=== PATIENT | female | born 1960 | race Caucasian/White ===

== ENCOUNTER 2024-01-19 09:10 | Inpatient (IN) | payer OTHER ==
[~2024-01-19] VITALS: Ht 167.6 cm; Wt 94.5 kg
[2024-01-19] MEDS: ASPirin 81 mg TAB PO ONE (09:30)
[2024-01-19 09:36] LABS: Basophils # (auto) 0.1 10 ^3/uL (0-0.2); Basophils % (auto) 0.9 % (0.0-2.0); Eosinophils # (auto) 0.2 10 ^3/uL (0-0.8); Eosinophils % (auto) 1.9 % (0.0-7.0); Hematocrit 47.3 % (36.0-46.0); Hemoglobin 16.2 g/dL (12.2-16.2); Lymphocytes # (auto) 2.7 10 ^3/uL (0.4-5.4); Lymphocytes % (auto) 27.2 % (10.0-50.0); Mean Corpuscular Hemoglobin 32.5 pg (28.0-32.0); Mean Corpuscular Hgb Conc. 34.2 g/dL (32.0-36.0); Mean Corpuscular Volume 95.2 fL (80.0-100.0); Monocytes # (auto) 0.5 10 ^3/uL (0-1.3); Monocytes % (auto) 4.6 % (0.0-12.0); Neutrophils # (auto) 6.6 10 ^3/uL (1.6-8.6); Neutrophils % (auto) 65.4 % (37.0-80.0); Nucleated Red Blood Cells % 0.2 %; Red Blood Cells 4.97 10^6/uL (4.0-5.20); Red Cell Distribution Width 13.1 % (11.8-14.3)
[2024-01-19 09:42] LABS: Albumin 4.4 g/dL (3.2-4.8); Alkaline Phosphatase 47 U/L (46-116); Anion Gap 2 (5-15); Aspartate Aminotransferase 13 U/L (13-40); Blood Urea Nitrogen 12 mg/dL (9-23); Calcium 10.1 mg/dL (8.5-10.1); Carbon Dioxide 28 mmol/L (20-30); Chloride 111 mmol/L (98-107); Glucose 113 mg/dL (74-106); Magnesium 1.9 mg/dL (1.6-2.6); Sodium 141 mmol/L (136-145)
[2024-01-19 09:43] LABS: Bilirubin, Total 0.5 mg/dL (0.2-1.0); Total Protein 7.3 g/dL (5.7-8.2)
[2024-01-19 09:44] LABS: INR 0.97 (0.9-1.15); Partial Thromboplastin Time 26.7 SEC (24.5-34.5); Prothrombin Time 10.3 sec (9.3-11.8)
[2024-01-19 09:51] LABS: Alanine Aminotransferase < 9 U/L (7-40)
[2024-01-19 10:00] VITALS: PULSE 93; RESP 22; O2SAT 94
[2024-01-19 10:00] LABS: Urine Bacteria None Seen /hpf (None Seen)
[2024-01-19 10:09] LABS: Urine Blood 1+ /uL (Negative); Urine Clarity Clear (Clear); Urine Color Light-Yellow (Yellow); Urine Protein, UAD 2+ (Negative); Urine Specific Gravity 1.015 (1.001-1.035); Urine Urobilinogen Normal (Negative); Urine WBC 2 /hpf (0 - 5)
[2024-01-19] MEDS: dilTIAZem 25 MG/5 ML VIAL IV ONE (11:19)
[2024-01-19] MEDS ORDERED: LISI20TA56 PO (12:31)
[2024-01-19] MEDS ORDERED: CITA-77 PO (12:31)
[2024-01-19] MEDS ORDERED: GABA-1250 PO (12:31)
[2024-01-19] MEDS ORDERED: ATOR20TA50 PO (12:31)
[2024-01-19] MEDS ORDERED: LEVO125T7 PO (12:31)
[2024-01-19 12:56] LABS: Amphetamine Screen, Urine Neg (NEGATIVE)
[2024-01-19 12:57] LABS: Barbiturate Scree,Urine Neg (NEGATIVE); Benzodiazephine Screen, Urine Neg (NEGATIVE); Cannabinoid Screen, Urine Neg (NEGATIVE); Cocaine Screen, Urine Neg (NEGATIVE); Opiate Scree,Urine Pos (NEGATIVE); Phencyclidine Screen, Urine Neg (NEGATIVE)
[2024-01-19] MEDS ORDERED: MORPHINE SULFATE INJ 2 MG/ml SYRG IV PRN (13:15)
[2024-01-19] MEDS ORDERED: ACETAMINOPHEN 325 MG TAB PO PRN ×2 (13:15)
[2024-01-19] MEDS ORDERED: ONDANSETRON HCL 4 MG/2 ML VIAL IV PRN (13:15)
[2024-01-19] MEDS ORDERED: NITROGLYCERIN 0.4 MG SL TAB SL PRN (13:15)
[2024-01-19] MEDS ORDERED: DEXTROSE (50%) 50ML SYRG IV PRN (13:15)
[2024-01-19] MEDS ORDERED: hydrALAZINE HCL 20 MG/ML VL IV PRN (13:30)
[2024-01-19] MEDS: MAGNESIUM SULFATE 1GM/100ML 100 ML IV SCH (13:53)
[2024-01-19] MEDS: ENOXAPARIN SOD 100 MG/1 ML SYRINGE SC ONE (13:53)
[2024-01-19] MEDS: GABAPENTIN 300 MG CAP PO SCH (13:54)
[2024-01-19 14:03] LABS: Triglycerides 122 mg/dL (< 150)
[2024-01-19 14:04] LABS: LDL Cholesterol 79 mg/dL (< 100)
[2024-01-19 14:05] LABS: HDL Cholesterol 50 mg/dL (40-59)
[2024-01-19 14:06] LABS: Cholesterol 151 mg/dL (< 200)
[2024-01-19] MEDS: NICOTINE 21MG/24 HR TOPICAL PATCH TD ONE (15:04)
[2024-01-19] MEDS: ACCU-CHEK COMFORT CURVE STRIP VI SCH (17:43)
[2024-01-19] MEDS: InsuLIN REG 1unit/0.01ml Soln (100units/ml) SC SCH (17:43)
[2024-01-19] MEDS: ATORVASTATIN 20 MG TAB PO SCH (22:04)
[2024-01-19] MEDS: ENOXAPARIN SOD 100 MG/1 ML SYRINGE SC SCH (22:05)
[2024-01-19] MEDS: MAGNESIUM OXIDE 400 MG TAB PO SCH (22:20)
[2024-01-19] MEDS: METOPROLOL TARTRATE 25 MG TAB PO SCH (22:21)
[2024-01-19] MEDS: LISINOPRIL 20 MG TAB PO SCH (22:21)
[2024-01-19] MEDS: MORPHINE SULFATE INJ 2 MG/ml SYRG IV PRN (23:13)
[2024-01-20] VITALS (9 sets, daily range): BP systolic 114–150; BP diastolic 57–87; PULSE 61–144; RESP 18–20; TEMP 97.6–98.4; O2SAT 92–97
[2024-01-20] MEDS ORDERED: EMPA1TAB PO (04:49)
[2024-01-20 06:05] LABS: Basophils # (auto) 0.1 10 ^3/uL (0-0.2); Basophils % (auto) 0.8 % (0.0-2.0); Eosinophils # (auto) 0.2 10 ^3/uL (0-0.8); Eosinophils % (auto) 2.1 % (0.0-7.0); Hematocrit 42.4 % (36.0-46.0); Hemoglobin 14.4 g/dL (12.2-16.2); Lymphocytes # (auto) 2.7 10 ^3/uL (0.4-5.4); Lymphocytes % (auto) 35.2 % (10.0-50.0); Mean Corpuscular Hemoglobin 32.2 pg (28.0-32.0); Mean Corpuscular Volume 94.7 fL (80.0-100.0); Monocytes # (auto) 0.4 10 ^3/uL (0-1.3); Monocytes % (auto) 5.3 % (0.0-12.0); Neutrophils # (auto) 4.4 10 ^3/uL (1.6-8.6); Neutrophils % (auto) 56.6 % (37.0-80.0); Nucleated Red Blood Cells % 0.1 %; Red Blood Cells 4.48 10^6/uL (4.0-5.20); Red Cell Distribution Width 12.9 % (11.8-14.3); White Blood Cell 7.7 10^3/uL (4.4-10.8)
[2024-01-20] MEDS: LEVOTHYROXINE SODIUM 25 MCG TAB PO SCH (06:08)
[2024-01-20] MEDS: LEVOTHYROXINE SODIUM 100 MCG TAB PO SCH (06:08)
[2024-01-20 06:22] LABS: Albumin 3.7 g/dL (3.2-4.8); Alkaline Phosphatase 36 U/L (46-116); Anion Gap 4 (5-15); Aspartate Aminotransferase 13 U/L (13-40); BUN/Creatinine Ratio 14.9 (10.0-20.0); Blood Urea Nitrogen 14 mg/dL (9-23); Calcium 9.5 mg/dL (8.7-10.4); Carbon Dioxide 28 mmol/L (20-30); Chloride 109 mmol/L (98-107); Glucose 94 mg/dL (74-106); Potassium 3.7 mmol/L (3.5-5.1); Sodium 141 mmol/L (136-145)
[2024-01-20 06:23] LABS: Bilirubin, Total 0.6 mg/dL (0.2-1.0); Total Protein 6.4 g/dL (5.7-8.2)
[2024-01-20 06:25] LABS: Alanine Aminotransferase < 9 U/L (7-40)
[2024-01-20] MEDS: HYDROcodone-ACET 5/325MG TAB PO PRN (06:45)
[2024-01-20] MEDS ORDERED: HYDR-4798 PO (06:49)
[2024-01-20] MEDS: NICOTINE 21MG/24 HR TOPICAL PATCH TD SCH (09:20)
[2024-01-20] MEDS: CITALOPRAM HYDROBR 20 MG TAB PO SCH (09:22)
[2024-01-20] MEDS ORDERED: GABA-1250 PO ×2 (09:26→09:27)
[2024-01-20] MEDS ORDERED: FENO54TA4 PO (09:27)
[2024-01-20] MEDS ORDERED: EMPA1TAB3 PO (09:28)
[2024-01-20] MEDS ORDERED: POTA-36 PO (09:30)
[2024-01-20] MEDS ORDERED: PATIENTS OWN MEDICATION (Levothyroxine Sodium 1 TAB) PO SCH (10:00)
[2024-01-20] MEDS: HYDROcodone-ACET 10/325MG TAB PO PRN (13:05)
[2024-01-20] MEDS ORDERED: AMIODARONE 450mg/250ml AE 250 ML IV SCH ×2 (14:30→20:30)
[2024-01-20] MEDS: MAGNESIUM SULFATE 1GM/100ML 100 ML IV ONE (16:20)
[2024-01-20] MEDS: POTASSIUM EFFERVESENT TAB 25 MEQ PO ONE (16:20)
[2024-01-20] MEDS: AMIODARONE BOLUS KIT 100 ML IV ONE (17:44)
[2024-01-20] MEDS: ATORVASTATIN 20 MG TAB PO SCH (21:17)
[2024-01-20] MEDS: FLECAINIDE ACETATE 50 MG TAB PO SCH (21:17)
[2024-01-20] MEDS: APIXABAN 5 MG TAB PO SCH (21:18)
[2024-01-20] MEDS: GABAPENTIN 400 MG CAP PO SCH (21:19)
[2024-01-20] MEDS: POTASSIUM CHL 10 Meq TABLET PO SCH (21:19)
[2024-01-21 01:00] VITALS: BP_SYST 87; BP_SYST 94; BP_DIAS 40; BP_DIAS 66; PULSE 46; RESP 18; TEMP 98; O2SAT 93
[2024-01-21 04:55] VITALS: BP 119/64; PULSE 60; RESP 22; TEMP 97.7; O2SAT 100
[2024-01-21] MEDS: LEVOTHYROXINE SODIUM 50 MCG TAB PO SCH (06:10)
[2024-01-21 08:00] VITALS: BP 145/70; PULSE 48; PULSE 58; PULSE 66; RESP 17; TEMP 97.6; O2SAT 95
[2024-01-21 09:00] VITALS: BP 145/70; PULSE 58; RESP 17; TEMP 97.6; O2SAT 95
[2024-01-21] MEDS: CITALOPRAM HYDROBR 20 MG TAB PO SCH (10:06)
[2024-01-21 13:00] VITALS: BP 142/65; PULSE 48; RESP 18; TEMP 97.8; O2SAT 92
[2024-01-21] MEDS ORDERED: LEV50T PO (13:12)
[2024-01-21] MEDS ORDERED: MET25T PO (13:12)
[2024-01-21] MEDS ORDERED: APIX5TAB PO (13:12)
[2024-01-21 14:31] VITALS: BP 142/65; PULSE 48; RESP 18; TEMP 97.8; O2SAT 92
== END 2024-01-21 15:36 | disposition home or self-care (01) | DRG 282 ==
LOC: ER 09:10 → TELE 13:21 → TELE-CENTR 01-20 03:16
PROVIDERS: ADMIT Registered Nurse; ATTEND Registered Nurse
DX: I48.91 Unspecified atrial fibrillation (principal); I21.A1 Myocardial infarction type 2; N18.32 Chronic kidney disease, stage 3b; I12.9 Hypertensive chronic kidney disease with stage 1 through stage 4 chronic kidney disease, or unspecified chronic kidney disease; E03.9 Hypothyroidism, unspecified; E78.5 Hyperlipidemia, unspecified; E66.9 Obesity, unspecified; E11.22 Type 2 diabetes mellitus with diabetic chronic kidney disease; E11.42 Type 2 diabetes mellitus with diabetic polyneuropathy; F17.210 Nicotine dependence, cigarettes, uncomplicated; G89.4 Chronic pain syndrome; Z88.6 Allergy status to analgesic agent; Z88.1 Allergy status to other antibiotic agents; Z82.49 Family history of ischemic heart disease and other diseases of the circulatory system; Z90.49 Acquired absence of other specified parts of digestive tract; Z79.01 Long term (current) use of anticoagulants; Z83.3 Family history of diabetes mellitus; Z68.33 Body mass index [BMI] 33.0-33.9, adult
CPT/HCPCS: 36415; 71045; 80053; 80061; 80307; 81001; 82962; 83036; 83735; 83880; 84443; 84484; 85025; 85610; 85730; 93005; 93306; 96365; 96372; 96375; 99291; G0378

== ENCOUNTER 2024-08-10 22:22 | Emergency (ER) | payer OTHER ==
[~2024-08-10] VITALS: Ht 167.6 cm; Wt 95.2 kg
[~2024-08-10 22:22] MED LIST: APIX5TAB PO; ATOR20TA50 PO; CITA-77 PO; EMPA1TAB3 PO; FENO54TA4 PO; GABA-1250 PO; HYDR-4798 PO; LEVO-848 PO; LEVO125T7 PO; LISI20TA56 PO; MET25T PO; POTA-36 PO
--- NOTE | 2024-08-10 22:28 | ECG ---
[facility] Test Date: 2024-08-10 Test Time: 22:26:26 Pat Name: MAHESH MORRISON Department: ER Room: Gender: F Instrument Maker And Repairer: [id number] : [id number] Requested By: EVERARDO MCCLELLAND Order Number: [id number] Reading MD: Abel Fitzgerald Measurements Intervals [place] Rate: 47 P: 51 MD: 185 QRS: 60 QRSD: 107 T: 20 QT: 493 QTc: 436 Interpretive Statements Sinus bradycardia Electronically Signed On 08-13-2024 13:05:36 PST by Abel Fitzgerald Please click the below link to view image of tracing.
--- NOTE | 2024-08-10 22:41 | ED.PDOC ---
HPI Comments 63-year-old female who came to ER due to chest pains. Patient does have history of hypertension, dyslipidemia and AFib. States for the past few hours, she has been having intermittent episodes of sharp left-sided chest pains, radiating down the left arm, worsens with and laying down, and with deep breathing. Patient admits that she has stress recently at work. Blood pressure upon arrival was 171/81 mm Hg Chief Complaint: Chest Pain Time Seen by MD: 22:41 Primary Care Provider: KELSEY Reviewed Notes: Nurses Notes Allergies: Coded Allergies: Erythromycin (Verified Allergy, Unknown, 01/19/24) NSAIDs (Verified Allergy, Unknown, 01/19/24) Home Meds Active Scripts Metoprolol Tartrate (Lopressor) 25 Mg Tb, 25 MG PO BID for 30 Days, #60 TAB 6 Refills Prov:LOVETAINA Olguin Raad DO 01/21/24 Levothyroxine Sodium (SYNTHROID TABLET) 50 Mcg Tb, 125 MCG PO QAM@0600 for 30 Days, #30 TAB 5 Refills Prov:MONSE LOVEMY Raad DO 01/21/24 Apixaban Base (ELIQUIS) 5 Mg Tab, 5 MG PO BID for 30 Days, #60 TAB 6 Refills Prov:LOVETAINA Olguin DO 01/21/24 Reported Medications Potassium Chloride (POTASSIUM CHLORIDE CR) 10 Meq Tb, 1 TAB PO BID, #30 TAB 5 Refills 01/20/24 Empagliflozin (Jardiance) 25 Mg Tab, 12.5 MG PO DAILY, TAB 01/20/24 Gabapentin (Gabapentin) 300 Mg Cap, 400 MG PO HS for 30 Days, MG 01/20/24 Fenofibrate (Fenofibrate) 54 Mg Tab, 1 TAB PO DAILY 01/20/24 Hydrocodone-Acetaminophen (Hydrocodone Bitartrate/AC 10-325 mg) 1 Tab Tab, 1 TAB PO, TAB 01/20/24 Citalopram Hydrobromide (Citalopram Hydrobromide) 20 Mg Tab, 1 TAB PO DAILY 01/19/24 Atorvastatin Calcium (ATORVASTATIN CALCIUM) 20 Mg Tab, 1 TAB PO DAILY 01/19/24 Lisinopril (Lisinopril) 20 Mg Tab, 1 TAB PO BID 01/19/24 Levothyroxine Sodium (Levothyroxine Sodium) 125 Mcg Tab, 1 TAB PO DAILY 01/19/24 Information Source: Patient Mode of Arrival: Ambulatory Severity: Moderate Timing: Hours Duration: Since onset Prehospital treatment: None Location: Chest (L) Radiation: Arm (L) Quality: Sharp Onset: With Light Exertion Cardiac Risk Factors: Hyperlipidemia, HTN PE Risk Factors: None History of: Similar pain in past Modifying Factors: Nothing Associated Signs and Symptoms: SOB Past Medical History PAST MEDICAL HISTORY: AFIB, CKF, High Lipids, HTN Surgical History: Cholecystectomy, 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 Hx Family History Family History: Family hx of heart david, Family hx of HTN Social History Smoker: Cigarettes, Less Than 1 Pack/Day Alcohol: Denies ETOH Use Drugs: Denies Drug Use Lives In: Home Constitutional: denies: chills, diaphoresis, fatigue, fever, malaise, sweats, weakness, others EENTM: denies: blurred vision, double vision, ear bleeding, ear discharge, ear drainage, ear pain, ear ringing, eye pain, eye redness, hearing loss, mouth pain, mouth swelling, nasal discharge, nose bleeding, nose congestion, nose pain, photophobia, tearing, throat pain, throat swelling, voice changes, others Respiratory: reports: SOB at rest, shortness of breath; denies: cough, hemoptysis, orthopnea, SOB with excertion, stridor, wheezing, others Cardiovascular: reports: chest pain, dizzy spells, left arm pain; denies: diaphoresis, Dyspnea on exertion, edema, irregular heart beat, lightheadedness, palpitations, PND, syncope, others Gastrointestinal: denies: abdomen distended, abdominal pain, blood streaked bowels, constipated, diarrhea, dysphagia, difficulty swallowing, hematemesis, melena, nausea, poor appetite, poor fluid intake, rectal bleeding, rectal pain, vomiting, others Genitourinary: denies: abnormal vagina bleeding, burning, dyspareunia, dysuria, flank pain, frequency, hematuria, incontinence, pain, , vagina discharge, urgency, others Neurological: denies: dizziness, fainting, headache, left sided numbness, left sided weakness, numbness, paresthesia, pre-existing deficit, right sided numbness, right sided weakness, seizure, speech problems, tingling, tremors, weakness, others Musculoskeletal: denies: back pain, gout, joint pain, joint swelling, muscle pain, muscle stiffness, neck pain, others Integumetry: denies: bruises, change in color, change in hair/nails, dryness, laceration, lesions, lumps, rash, wounds, others Allergic/Immunocompromised: denies: Difficulty Healing, Frequent Infections, Hives, Itching, others Hematologic/Lymphatic: denies: anemia, blood clots, easy bleeding, easy bruising, swollen glands, others Endocrine: denies: excessive hunger, excessive sweating, excessive thirst, excessive urination, flushing, intolerance to cold, intolerance to heat, unexplained weight gain, unexplained weight loss, others Psychiatric: denies: anxiety, bipolar disorder, depression, hopeless, panic disorder, schizophrenia, sleepless, suicidal, others Physical Exam General Appearance: No Apparent Distress, Normal HEENT: Normal ENT Inspection, Pharynx Normal, TMs Normal Neck: Full Range of Motion, Non-Tender, Normal, Normal Inspection Respiratory: Chest Non-Tender, Lungs Clear, No Accessory Muscle Use, No Respiratory Distress, Normal Breath Sounds Cardiovascular: No Edema, No JVD, No Murmur, No Gallop, Normal Peripheral Pulses, Regular Rate/Rhythm Breast Exam: Deferred Gastrointestinal: No Organomegaly, Non Tender, No Pulsatile Mass, Normal Bowel Sounds, Soft Genitalia: Deferred Pelvic: Deferred Rectal: Deferred Extremities: No calf tenderness, Normal capillary refill, Normal inspection, Normal range of motion, Non-tender, No pedal edema Musculoskeletal : Apperance: Normal Neurologic: Alert, flying teacher II-XII nml as Tested, No Motor Deficits, Normal Affect, Normal Mood, No Sensory Deficits Cerebellar Function: Normal Reflexes: Normal Skin: Dry, Normal Color, Warm Lymphatic: No Adenopathy Was a procedure done? Was a procedure done?: No CP Differential Dx Differential Diagnosis: A-fib, Angina, Anxiety / Panic Attack, Electrolyte Disorder, Hyperventilation Differential Diagnosis: Angina, Chest Wall Pain, Costochondritis, Esophageal reflux/spasm, Gastritis, Myocardial Infarction X-Ray, Labs, Meds, VS Vital Signs Date Time Temp Pulse Resp B/P (MAP) Pulse Ox O2 Delivery O2 Flow Rate FiO2 08/11/24 01:29 49 16 99 Room Air* 0 21 08/11/24 01:29 49 16 151/72 (98) 99 08/10/24 22:26 47 08/10/24 22:23 97.5 48 16 171/81 (111) 96 Lab Test 08/10/24 23:31 08/10/24 22:35 08/10/24 22:32 Range/Units Troponin I High Sensitivity 26 26 </=34 ng/L White Blood Count 8.2 4.4-10.8 10^3/uL Red Blood Count 4.41 4.0-5.20 10^6/uL Hemoglobin 14.0 12.2-16.2 g/dL Hematocrit 40.9 36.0-46.0 % Mean Corpuscular Volume 92.7 80.0-100.0 fL Mean Corpuscular Hemoglobin 31.8 28.0-32.0 pg Mean Corpuscular Hemoglobin Concent 34.4 32.0-36.0 g/dL Red Cell Distribution Width 12.1 11.8-14.3 % Platelet Count 193 140-450 10^3/uL Mean Platelet Volume 8.0 6.9-10.8 fL Neutrophils (%) (Auto) 52.8 37.0-80.0 % Lymphocytes (%) (Auto) 38.0 10.0-50.0 % Monocytes (%) (Auto) 5.8 0.0-12.0 % Eosinophils (%) (Auto) 2.2 0.0-7.0 % Basophils (%) (Auto) 1.2 0.0-2.0 % Neutrophils # (Auto) 4.3 1.6-8.6 10 ^3/uL Lymphocytes # (Auto) 3.1 0.4-5.4 10 ^3/uL Monocytes # (Auto) 0.5 0-1.3 10 ^3/uL Eosinophils # (Auto) 0.2 0-0.8 10 ^3/uL Basophils # (Auto) 0.1 0-0.2 10 ^3/uL Nucleated Red Blood Cells 0.0 % Sodium Level 142 136-145 mmol/L Potassium Level 4.1 3.5-5.1 mmol/L Chloride Level 108 H 98-107 mmol/L Carbon Dioxide Level 27 20-31 mmol/L Anion Gap 7 5-15 Blood Urea Nitrogen 17 9-23 mg/dL Creatinine 0.77 0.550-1.02 mg/dL Glomerular Filtration Rate Calc 87 >90 mL/min BUN/Creatinine Ratio 22.1 H 10.0-20.0 Serum Glucose 103 74-106 mg/dL Calcium Level 9.9 8.7-10.4 mg/dL Total Bilirubin 0.5 0.2-1.0 mg/dL Aspartate Amino Transferase (AST) 11 L 13-40 U/L Alanine Aminotransferase (ALT) 13 7-40 U/L Alkaline Phosphatase 38 L 46-116 U/L Total Protein 6.9 5.7-8.2 g/dL Albumin 4.2 3.2-4.8 g/dL Lipase 41 12-53 U/L Urine Color Colorless Yellow Urine Clarity Clear Clear Urine pH 5.5 5.0-9.0 Urine Specific [place] 1.006 1.001-1.035 Urine Protein 1+ H Negative Urine Ketones Negative Negative Urine Blood Trace H Negative /uL Urine Nitrite Negative Negative Urine Bilirubin Negative Negative Urine Urobilinogen Normal Negative mg/dL Urine Leukocyte Esterase Negative Negative /uL Urine RBC 3 0 - 4 /hpf Urine WBC 2 0 - 5 /hpf Urine Squamous Epithelial Cells Few <5 /hpf Urine Bacteria None seen None Seen /hpf Urine Glucose 3+ H Normal mg/dL Time of 1ST Reevaluation: 22:36 Reevaluation 1ST: Unchanged Patient Education/Counseling: Diagnosis, Treatment Family Education/Counseling: No Family Present Departure 1 Departure Time of Disposition: 23:15 Impression: Primary Impression: Atypical chest pain Disposition: 01 HOME / SELF CARE / HOMELESS Condition: Stable Discharged With: Self Critical Care Note Critical Care Time?: No Stability Stability form required: No Heart Score Heart Score: Heart Score Response (Comments) Value History Slightly Suspicious 0 EKG Normal 0 Age 45-64 1 Risk Factors 1 or 2 risk factors 1 Troponin Normal limit 0 Total 2 I personally scribed for EVERARDO MCCLELLAND MD ([email or web address]) on 08/10/24 at 22:41. Electronically submitted by Pato Lorenzana ([email or web address]). EVERARDO MCCLELLAND MD Aug 10, 2024 22:41
[2024-08-10 22:43] LABS: Basophils # (auto) 0.1 10 ^3/uL (0-0.2); Basophils % (auto) 1.2 % (0.0-2.0); Eosinophils # (auto) 0.2 10 ^3/uL (0-0.8); Eosinophils % (auto) 2.2 % (0.0-7.0); Hematocrit 40.9 % (36.0-46.0); Lymphocytes # (auto) 3.1 10 ^3/uL (0.4-5.4); Mean Corpuscular Hemoglobin 31.8 pg (28.0-32.0); Mean Corpuscular Hgb Conc. 34.4 g/dL (32.0-36.0); Mean Corpuscular Volume 92.7 fL (80.0-100.0); Monocytes # (auto) 0.5 10 ^3/uL (0-1.3); Monocytes % (auto) 5.8 % (0.0-12.0); Neutrophils # (auto) 4.3 10 ^3/uL (1.6-8.6); Neutrophils % (auto) 52.8 % (37.0-80.0); Platelet Count (auto) 193 10^3/uL (140-450); Red Blood Cells 4.41 10^6/uL (4.0-5.20); Red Cell Distribution Width 12.1 % (11.8-14.3); White Blood Cell 8.2 10^3/uL (4.4-10.8)
--- NOTE | 2024-08-10 22:50 | DVH ---
CHEST RADIOGRAPH Indication: left chest pain Technique: Single frontal view of the chest was obtained COMPARISON: XY CHEST PORTABLE on DOS: 01/19/24 FINDINGS: Lines and Tubes: None Lungs: Clear Pleura: No effusion. No pneumothorax. Cardiomediastinal contours: Unremarkable Bones: Unremarkable IMPRESSION: 1. No acute disease.
[2024-08-10 23:10] LABS: Urine Bacteria None Seen /hpf (None Seen)
[2024-08-10 23:11] LABS: Alanine Aminotransferase 13 U/L (7-40); Albumin 4.2 g/dL (3.2-4.8); Alkaline Phosphatase 38 U/L (46-116); Anion Gap 7 (5-15); Aspartate Aminotransferase 11 U/L (13-40); BUN/Creatinine Ratio 22.1 (10.0-20.0); Bilirubin, Total 0.5 mg/dL (0.2-1.0); Blood Urea Nitrogen 17 mg/dL (9-23); Calcium 9.9 mg/dL (8.7-10.4); Carbon Dioxide 27 mmol/L (20-31); Chloride 108 mmol/L (98-107); Glucose 103 mg/dL (74-106); Lipase 41 U/L (12-53); Potassium 4.1 mmol/L (3.5-5.1); Sodium 142 mmol/L (136-145); Total Protein 6.9 g/dL (5.7-8.2)
[2024-08-10 23:18] LABS: Urine Blood TRACE /uL (Negative); Urine Clarity Clear (Clear); Urine Color Colorless (Yellow); Urine Protein, UAD 1+ (Negative); Urine Specific Gravity 1.006 (1.001-1.035); Urine Urobilinogen Normal (Negative); Urine WBC 2 /hpf (0 - 5); Urine pH 5.5 (5.0-9.0)
[2024-08-11 01:29] VITALS: BP 151/72; PULSE 49; RESP 16; O2SAT 99
== END 2024-08-11 01:29 | disposition home or self-care (01) ==
LOC: ER 22:22
DX: R07.89 Other chest pain (principal); E78.5 Hyperlipidemia, unspecified; I11.0 Hypertensive heart disease with heart failure; I50.89 Other heart failure; Z88.1 Allergy status to other antibiotic agents; Z79.899 Other long term (current) drug therapy; Z90.49 Acquired absence of other specified parts of digestive tract; Z98.890 Other specified postprocedural states; F17.210 Nicotine dependence, cigarettes, uncomplicated
CPT/HCPCS: 36415; 71045; 80053; 81001; 83690; 84484; 85025; 93005